=== PATIENT | female | born 1975 | race Caucasian/White ===

== ENCOUNTER 2019-02-08 09:26 | Emergency (ER) | payer MEDICAID ==
[~2019-02-08] VITALS: Ht 160 cm; Wt 70.0 kg
[2019-02-08] MEDS ORDERED: KETOROLAC 60MG/2ML VIAL IM ONE (10:15)
[2019-02-08] MEDS ORDERED: ACETAMINOPHEN 325MG TABLET PO ONE (12:00)
[2019-02-08] MEDS ORDERED: DEXAMETHASONE 10 MG/ML VIAL IM ONE (12:00)
[2019-02-08 12:34] VITALS: BP 128/87
== END 2019-02-08 12:34 | disposition home or self-care (01) ==
LOC: ER 09:53
DX: M54.5 Low back pain (principal); M19.90 Unspecified osteoarthritis, unspecified site; E03.9 Hypothyroidism, unspecified; Z98.51 Tubal ligation status; Z88.2 Allergy status to sulfonamides; Z88.3 Allergy status to other anti-infective agents
CPT/HCPCS: 72100; 96372; 99283; J1100; J1885

== ENCOUNTER 2019-12-13 18:37 | Emergency (ER) | payer MEDICAID ==
[~2019-12-13] VITALS: Ht 160 cm; Wt 66.0 kg
[2019-12-13 20:20] VITALS: BP 130/80
== END 2019-12-13 21:29 | disposition left against medical advice (07) ==
LOC: ER 18:37
DX: R51 Headache (principal); M54.2 Cervicalgia; Z53.21 Procedure and treatment not carried out due to patient leaving prior to being seen by health care provider